=== PATIENT | female | born 1945 | race Hispanic/Latino ===

== ENCOUNTER 2018-11-01 16:59 | Observation (INO) | payer OTHER ==
[2018-11-01] MEDS ORDERED: ONDANSETRON 4 MG/2 ML VIAL IV PRN (17:44)
[2018-11-01 17:47] VITALS: BMI 31.7
[2018-11-01] MEDS: NACHLORIDE 0.45% 1,000 ML IV SCH (18:15)
[2018-11-01 18:17] LABS: Absolute Lymphocytes (CBC) 1.4 K/uL (0.7-4.9); Absolute Monocytes 0.8 K/uL (0.1-1.3); Absolute Neutrophil 9.9 K/uL (1.8-8.0); Basophils % 0.5 % (0-1.3); Eosinophils % 0.2 % (0-4.4); Hematocrit 41.7 % (36.0-45.0); Lymphocytes % 11.6 % (15.3-44.8); Monocytes % 6.8 % (3.3-12.3); RBC Red Blood Cell Count 4.83 M/uL (3.86-4.86)
[2018-11-01 18:31] LABS: Albumin 3.6 g/dL (3.4-5.0); Bilirubin Total 0.6 mg/dL (0.2-1.0); Potassium 4.4 mmol/L (3.5-5.1); Protein, Total 8.3 g/dL (6.4-8.2)
[2018-11-01 22:35] LABS: Urine Appearance TURBID; Urine Blood NEGATIVE (NEG); Urine Color DK YELLOW; Urine Glucose NEGATIVE (NEG); Urine Protein TRACE (NEG); Urine Specific Gravity 1.025 (1.005-1.030)
[2018-11-01 22:36] LABS: Urine Microscopic Reflex ORDER UMIC
[2018-11-01 22:53] LABS: Urine Culture Reflex Order REFLEXED
[2018-11-01 22:54] LABS: Calcium Oxalate Crystals- Ur MODERATE (NONE SEEN); Urine Bacteria 20-50 /HPF (<20); Urine RBC NONE SEEN /HPF (NONE SEEN)
[2018-11-01 22:55] LABS: Urine Bilirubin 2+ (NEG)
[2018-11-01 23:40] VITALS: O2SAT 97
[2018-11-02] MEDS: NACHLORIDE 0.45% 1,000 ML IV SCH ×2 (00:58→06:36)
--- NOTE | 2018-11-02 07:09 | HP ---
Date of Admission: 11/01/2018 Chief Complaint: Abdominal pain, nausea, vomiting, and diarrhea. History Of Present Illness: A 73-year-old female was brought to the office with history of abdominal pain, diarrhea, and vomiting. She was clinically found to be dehydrated. The patient was admitted for observation. The patient had no history of vomiting of blood, no history of blood in the stools, or tarry stools. Past Medical History: Hypertension. Past Surgical History: Negative. Family History: Noncontributory. Allergies: NONE. Home Medicines: Please refer to the chart. Review of Systems: No history of fever, chills, rigors. Physical Examination: General: Revealed a 73-year-old female. HEENT: No icterus. Neck: Supple. JVD negative. Chest: Clear. Heart: Regular. Abdomen: Tenderness particularly in left side of the abdomen. No palpable mass. Extremities: No edema. Laboratory Data: White count 87310, creatinine 2.0, BUN elevated to 36. Assessment: 1.Abdominal pain, vomiting, and diarrhea with dehydration. 2.History of hypertension. Plan: N.p.o. IV fluids. CAT scan. MACRINA/CHYNA Voice ID: [id number]
--- NOTE | 2018-11-02 07:27 | RAD REPORT ---
EXAM DESCRIPTION: CT - Abdomen Pelvis Wo Contrast - 11/01/2018 8:42 pm CLINICAL HISTORY: Abdominal pain. abd pain COMPARISON: No comparisons TECHNIQUE: CT imaging of the abdomen and pelvis was performed without contrast. Solid organ and vasc ular assessment is limited due to lack of IV contrast. All CT scans are performed using dose optimization technique as appropriate and may include automated exposure control or mA/KV adjustment according to patient size. FINDINGS: The lower lung chew are clear.Moderate to large hiatal hernia. Asymmetric wall thickenin g is present in the stomach. No liver mass or biliary dilatation. The spleen, pancreas, adrenal glands and kidneys are within norm al limits. Mild free fluid is seen in the abdomen. There is also increased soft tissue along the omentum suspici ous for omental carcinomatosis. Small amount fluid is seen in the pelvis. No bowel obstruction or rodger e air. Moderate lumbar degenerative changes. 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 Primary malignancy resulting in this is difficult to pinpoint but may be related to the stoma ch, with there is significant wall thickening noted. Consider upper endoscopy followup. A limited non-contrast examination was performed as detailed.
[2018-11-02 08:52] VITALS: BP 149/72; TEMP 98.6
== END 2018-11-02 11:32 | disposition home or self-care (01) ==
LOC: 2ND 17:08
PROVIDERS: ADMIT Internal Medicine; ATTEND Internal Medicine
DX: R10.9 Unspecified abdominal pain (principal); R11.10 Vomiting, unspecified; R19.7 Diarrhea, unspecified; E86.0 Dehydration; I10 Essential (primary) hypertension
CPT/HCPCS: 87088; 85025; 87086; 36415; 83690; 80053; 74176; G0379; G0378; 81003; 81015